=== PATIENT | male | born 1965 | race African-American/Black ===

== ENCOUNTER 2017-07-28 12:33 | Emergency (ER) | payer OTHER, BC | END 2017-07-28 17:13 | disposition home or self-care (01) | LOC: FTE 12:33 | DX: R23.8 Other skin changes (principal); R05 Cough; J45.909 Unspecified asthma, uncomplicated; E11.9 Type 2 diabetes mellitus without complications; Z79.4 Long term (current) use of insulin; Z79.82 Long term (current) use of aspirin; Z79.84 Long term (current) use of oral hypoglycemic drugs; Z95.1 Presence of aortocoronary bypass graft | CPT/HCPCS: 71045; 99284-25 ==

== ENCOUNTER 2017-09-07 17:13 | Emergency (ER) | payer OTHER | END 2017-09-07 21:25 | disposition home or self-care (01) | LOC: FTE 17:13 | DX: S62.002K Unspecified fracture of navicular [scaphoid] bone of left wrist, subsequent encounter for fracture with nonunion (principal); I10 Essential (primary) hypertension; E11.9 Type 2 diabetes mellitus without complications; J45.909 Unspecified asthma, uncomplicated; Y04.0XXA Assault by unarmed brawl or fight, initial encounter; Y92.9 Unspecified place or not applicable; Z79.4 Long term (current) use of insulin; Z79.82 Long term (current) use of aspirin; Z95.1 Presence of aortocoronary bypass graft | CPT/HCPCS: 29130; 73110-LT; 99283-25 ==

== ENCOUNTER 2018-05-23 11:24 | Emergency (ER) | payer SELFPAY, OTHER | END 2018-05-23 13:22 | disposition left against medical advice (07) | LOC: E/R 11:24 | DX: Z53.21 Procedure and treatment not carried out due to patient leaving prior to being seen by health care provider (principal) ==

== ENCOUNTER 2018-07-17 11:48 | Emergency (ER) | payer SELFPAY | END 2018-07-17 13:59 | disposition left against medical advice (07) | LOC: E/R 11:48 | DX: Z53.21 Procedure and treatment not carried out due to patient leaving prior to being seen by health care provider (principal) ==